=== PATIENT | male | born 1995 | race Caucasian/White ===

== ENCOUNTER 2021-08-15 21:08 | Emergency (ER) | payer OTHER ==
[~2021-08-15] VITALS: Ht 175.3 cm; Wt 62.6 kg
[~2021-08-15 21:08] MED LIST: ALBU90OI; ALBU90OI INH; ALBU90OI61 INH; AMOCLA500 PO; AMOX50SU PO; BENZ100A PO; CEPH250SUA PO; CYCL10 PO; IBUP600 PO; IBUP800 PO; LIDO700A20 TOP; METPRE4DP PO; MUPI2TO TOP; Naprosyn500 MG PO; POLY17UD PO; PRED15SY PO; Robaxin500 MG PO; TRAZ50 PO; Ultram50 MG PO
[2021-08-15 22:27] LABS: BASOPHILS ABSOLUTE AUTO 0.04 K/mm3 (0.00-0.23); BASOPHILS PERCENT AUTO 1 % (0-2); EOSINOPHILS ABSOLUTE AUTO 0.08 K/mm3 (0.00-0.68); EOSINOPHILS PERCENT AUTO 2 % (0-6); Hematocrit 43.8 % (37.0-53.0); Hemoglobin 15.6 g/dL (13.5-17.5); IMMATURE GRAN ABSOLUTE AUTO 0.01 K/mm3 (0.00-0.10); IMMATURE GRAN PERCENT AUTO 0 % (0-1); LYMPHOCYTES ABSOLUTE AUTO 1.83 K/mm3 (0.84-5.20); LYMPHOCYTES PERCENT AUTO 40 % (21-46); MONOCYTES ABSOLUTE AUTO 0.28 K/mm3 (0.16-1.47); MONOCYTES PERCENT AUTO 6 % (4-13); Mean Corpuscular HGB 31.1 pg (26.0-34.0); Mean Corpuscular HGB Conc 35.6 g/dL (31.5-36.5); Mean Corpuscular Volume 87 fL (80-100); NEUTROPHILS PERCENT AUTO 51 % (41-73); Platelet Count 261 K/mm3 (150-400); RDW Coefficient Variation 12.5 % (11.7-14.2); RDW Standard Deviation 40.1 fL (35.1-46.3); Red Blood Cell Count 5.02 M/mm3 (4.30-5.90); White Blood Cell Count 4.54 K/mm3 (4.00-11.30)
[2021-08-15 22:45] LABS: Alanine Aminotransfer (ALT/SGP 18 U/L (12-78); Albumin, Blood 4.3 g/dL (3.4-5.0); Albumin/Globulin Ratio 1.3 (0.8-1.8); Alk Phos 76 U/L (50-136); Anion Gap 4 mmol/L (6-16); Aspartate Aminotrans (AST/SGOT 13 U/L (12-37); Bilirubin, Total 1.1 mg/dL (0.1-1.0); Blood Urea Nitrogen 9 mg/dL (8-24); Bun/Creatinine Ratio 8.3 (12.0-20.0); CO2, Blood 28 mmol/L (21-32); Calcium, Blood 9.1 mg/dL (8.5-10.1); Chloride, Blood 108 mmol/L (98-108); Creatinine, Blood 1.08 mg/dL (0.60-1.20); Globulin, Blood 3.3 g/dL (2.2-4.0); Glomerular Filtration Rate >60 (60-); Glucose, Blood 77 mg/dL (70-99); Potassium, Blood 3.3 mmol/L (3.5-5.5); Sodium, Blood 140 mmol/L (136-145); Total Protein, Blood 7.6 g/dL (6.4-8.2)
[2021-08-16] MEDS ORDERED: ALBU90OI INH (00:12)
== END 2021-08-16 01:50 | disposition home or self-care (01) ==
LOC: ER 21:08
PROVIDERS: Physician Assistant
DX: R55 Syncope and collapse (principal); J45.909 Unspecified asthma, uncomplicated; Z79.899 Other long term (current) drug therapy
CPT/HCPCS: 36415; 80053; 85025; 93005; 93010; 99284-25

== ENCOUNTER 2021-08-20 22:28 | Emergency (ER) | payer OTHER ==
[~2021-08-20] VITALS: Ht 175.3 cm; Wt 61.2 kg
[2021-08-20 23:02] LABS: BASOPHILS ABSOLUTE AUTO 0.06 K/mm3 (0.00-0.23); BASOPHILS PERCENT AUTO 1 % (0-2); EOSINOPHILS ABSOLUTE AUTO 0.06 K/mm3 (0.00-0.68); EOSINOPHILS PERCENT AUTO 1 % (0-6); Hematocrit 43.2 % (37.0-53.0); Hemoglobin 15.8 g/dL (13.5-17.5); IMMATURE GRAN ABSOLUTE AUTO 0.01 K/mm3 (0.00-0.10); IMMATURE GRAN PERCENT AUTO 0 % (0-1); LYMPHOCYTES ABSOLUTE AUTO 1.99 K/mm3 (0.84-5.20); LYMPHOCYTES PERCENT AUTO 38 % (21-46); MONOCYTES ABSOLUTE AUTO 0.39 K/mm3 (0.16-1.47); MONOCYTES PERCENT AUTO 7 % (4-13); Mean Corpuscular HGB 31.3 pg (26.0-34.0); Mean Corpuscular HGB Conc 36.6 g/dL (31.5-36.5); Mean Corpuscular Volume 86 fL (80-100); NEUTROPHILS ABSOLUTE AUTO 2.79 K/mm3 (1.96-9.15); NEUTROPHILS PERCENT AUTO 53 % (41-73); Platelet Count 255 K/mm3 (150-400); RDW Coefficient Variation 12.6 % (11.7-14.2); RDW Standard Deviation 38.9 fL (35.1-46.3); Red Blood Cell Count 5.04 M/mm3 (4.30-5.90)
[2021-08-20 23:16] LABS: Source, Urine Clean Catch
[2021-08-20 23:19] LABS: Appearance, Urine Clear (Clear); Bilirubin, Urine Neg (Neg); Blood, Urine Neg (Neg); Color, Urine Yellow (P-Yellow); Glucose Qualitative, Urine Neg (Neg); Ketones, Urine Neg (Neg); Leukocyte Esterase, Urine Neg (Neg); Nitrite, Urine Neg (Neg); Protein, Urine Neg (Neg); Urobilinogen, Urine NORM (Normal)
[2021-08-20 23:20] LABS: Alanine Aminotransfer (ALT/SGP 16 U/L (12-78); Albumin, Blood 4.2 g/dL (3.4-5.0); Albumin/Globulin Ratio 1.3 (0.8-1.8); Alk Phos 72 U/L (50-136); Anion Gap 4 mmol/L (6-16); Aspartate Aminotrans (AST/SGOT 12 U/L (12-37); Bilirubin, Total 0.8 mg/dL (0.1-1.0); Blood Urea Nitrogen 11 mg/dL (8-24); Bun/Creatinine Ratio 10.1 (12.0-20.0); CO2, Blood 27 mmol/L (21-32); Calcium, Blood 9.1 mg/dL (8.5-10.1); Chloride, Blood 109 mmol/L (98-108); Creatinine, Blood 1.09 mg/dL (0.60-1.20); Globulin, Blood 3.2 g/dL (2.2-4.0); Glomerular Filtration Rate >60 (60-); Glucose, Blood 90 mg/dL (70-99); Potassium, Blood 3.5 mmol/L (3.5-5.5); Sodium, Blood 140 mmol/L (136-145); Total Protein, Blood 7.4 g/dL (6.4-8.2)
[2021-08-20 23:42] LABS: Magnesium, Blood 2.2 mg/dL (1.6-2.4)
== END 2021-08-21 01:18 | disposition home or self-care (01) ==
LOC: ER 22:28
PROVIDERS: Emergency Medicine
DX: R10.31 Right lower quadrant pain (principal); R11.0 Nausea; R19.7 Diarrhea, unspecified
CPT/HCPCS: 36415; 74176; 80053; 81003; 83690; 83735; 84145; 85025; 96374; 99285-25; A9270; J1885

== ENCOUNTER → 2021-08-27 | Outpatient (CLI) | payer OTHER ==
[2021-08-27 17:51] LABS: Free Thyroxine 1.13 ng/dL (0.70-1.60); Thyroid Stimulating Hormone 0.733 uIU/mL (0.360-4.800)
[2021-08-28 08:10] LABS: HIV SCREEN 4TH GENERATION WRFX Non Reactive (Non Reactive)
[2021-08-29 12:10] LABS: ANA DIRECT Negative (Negative); ANTI-DNA (DS) AB QN 1 IU/mL (0-9); RNP ANTIBODIES <0.2 AI (0.0-0.9); SJOGREN'S ANTI-SS-A <0.2 AI (0.0-0.9); SJOGREN'S ANTI-SS-B <0.2 AI (0.0-0.9); SMITH ANTIBODIES <0.2 AI (0.0-0.9)
== END | disposition home or self-care (01) ==
LOC: LAB SHORT 10:28
PROVIDERS: Nurse Practitioner Family
DX: Z11.4 Encounter for screening for human immunodeficiency virus [HIV] (principal); Z11.59 Encounter for screening for other viral diseases; Z13.1 Encounter for screening for diabetes mellitus; Z13.29 Encounter for screening for other suspected endocrine disorder; R10.9 Unspecified abdominal pain; R11.2 Nausea with vomiting, unspecified; R19.7 Diarrhea, unspecified
CPT/HCPCS: 83036; 84439; 84443; 85651; 86225; 86235; 86803; 87389

== ENCOUNTER 2021-10-06 09:16 | Emergency (ER) | payer OTHER ==
[~2021-10-06] VITALS: Ht 172.7 cm; Wt 61.2 kg
[2021-10-06 09:48] LABS: BASOPHILS ABSOLUTE AUTO 0.04 K/mm3 (0.00-0.23); BASOPHILS PERCENT AUTO 1 % (0-2); EOSINOPHILS ABSOLUTE AUTO 0.05 K/mm3 (0.00-0.68); EOSINOPHILS PERCENT AUTO 1 % (0-6); Hematocrit 42.9 % (37.0-53.0); Hemoglobin 15.9 g/dL (13.5-17.5); IMMATURE GRAN PERCENT AUTO 0 % (0-1); LYMPHOCYTES ABSOLUTE AUTO 0.67 K/mm3 (0.84-5.20); LYMPHOCYTES PERCENT AUTO 15 % (21-46); MONOCYTES ABSOLUTE AUTO 0.71 K/mm3 (0.16-1.47); MONOCYTES PERCENT AUTO 16 % (4-13); Mean Corpuscular HGB 31.2 pg (26.0-34.0); Mean Corpuscular HGB Conc 37.1 g/dL (31.5-36.5); Mean Corpuscular Volume 84 fL (80-100); Mean Platelet Volume 9.6 fL (9.1-12.4); NEUTROPHILS ABSOLUTE AUTO 3.09 K/mm3 (1.96-9.15); NEUTROPHILS PERCENT AUTO 68 % (41-73); Platelet Count 295 K/mm3 (150-400); RDW Coefficient Variation 13.1 % (11.7-14.2); RDW Standard Deviation 40.2 fL (35.1-46.3); Red Blood Cell Count 5.09 M/mm3 (4.30-5.90); White Blood Cell Count 4.56 K/mm3 (4.00-11.30)
[2021-10-06 10:14] LABS: Source, Urine Clean Catch
[2021-10-06 10:21] LABS: Alanine Aminotransfer (ALT/SGP 30 U/L (12-78); Albumin, Blood 4.6 g/dL (3.4-5.0); Albumin/Globulin Ratio 1.5 (0.8-1.8); Alk Phos 85 U/L (50-136); Anion Gap 9 mmol/L (6-16); Aspartate Aminotrans (AST/SGOT 23 U/L (12-37); Bilirubin, Total 1.2 mg/dL (0.1-1.0); Blood Urea Nitrogen 10 mg/dL (8-24); Bun/Creatinine Ratio 10.3 (12.0-20.0); CO2, Blood 26 mmol/L (21-32); Calcium, Blood 9.1 mg/dL (8.5-10.1); Chloride, Blood 105 mmol/L (98-108); Creatinine, Blood 0.97 mg/dL (0.60-1.20); Globulin, Blood 3.1 g/dL (2.2-4.0); Glomerular Filtration Rate >60 (60-); Glucose, Blood 91 mg/dL (70-99); Potassium, Blood 3.1 mmol/L (3.5-5.5); Sodium, Blood 140 mmol/L (136-145); Total Protein, Blood 7.7 g/dL (6.4-8.2)
[2021-10-06 10:31] LABS: Appearance, Urine Clear (Clear); Bilirubin, Urine Neg (Neg); Blood, Urine Neg (Neg); Color, Urine Yellow (P-Yellow); Glucose Qualitative, Urine Neg (Neg); Ketones, Urine 3+ (Neg); Leukocyte Esterase, Urine Neg (Neg); Nitrite, Urine Neg (Neg); Protein, Urine 1+ (Neg); Specific Gravity, Urine 1.025 (1.003-1.022); Urobilinogen, Urine 1+ (Normal)
[2021-10-06 10:33] LABS: Acetaminophen, Random 32.4 ug/mL (10.0-30.0); Salicylate 8.4 mg/dL (2.8-20.0); Thyroid Stimulating Hormone 1.43 uIU/mL (0.360-4.800); Thyroxine (T4) 11.8 ug/dL (4.5-12.1)
[2021-10-06 10:59] LABS: Influenza A, PCR NEGATIVE (NEGATIVE); Influenza B, PCR NEGATIVE (NEGATIVE); Resp Syncytial Virus, PCR NEGATIVE (NEGATIVE); SARS-Cov-2 (COVID-19) PCR, MMC NEGATIVE (NEGATIVE)
[2021-10-06 11:03] LABS: U Amphetamine Screen Not Detected; U Barbituate Screen Not Detected; U Benzodiazapine Screen Not Detected; U Buprenorphine Screen Not Detected; U Cannabinoids Screen DETECTED; U Cocaine Screen Not Detected; U Methadone Screen Not Detected; U Methamphetamine Screen Not Detected; U Opiates Screen Not Detected; U Oxycodone Screen Not Detected; U Phencyclidine Screen Not Detected; U Propoxyphene Screen Not Detected
[2021-10-06 11:57] LABS: Acetaminophen, Random 25.6 ug/mL (10.0-30.0); Magnesium, Blood 2.2 mg/dL (1.6-2.4); Salicylate 7.8 mg/dL (2.8-20.0)
[2021-10-06 13:49] LABS: Acetaminophen, Random 19.5 ug/mL (10.0-30.0); Salicylate 7.5 mg/dL (2.8-20.0)
== END 2021-10-06 14:11 | disposition home or self-care (01) ==
LOC: ER 09:16
PROVIDERS: Emergency Medicine; Physician Assistant
DX: T65.91XA Toxic effect of unspecified substance, accidental (unintentional), initial encounter (principal); J45.909 Unspecified asthma, uncomplicated
CPT/HCPCS: 0241U; 36415; 71045; 80053; 83735; 84436; 84443; 85025; 93005; 93010; 99285-25; G0480

== ENCOUNTER 2022-01-19 05:25 | Emergency (ER) | payer OTHER ==
[~2022-01-19] VITALS: Ht 175.3 cm; Wt 65.8 kg
== END 2022-01-19 06:28 | disposition left against medical advice (07) ==
LOC: ER 05:25
DX: Z53.21 Procedure and treatment not carried out due to patient leaving prior to being seen by health care provider (principal)